=== PATIENT | male | born 1955 ===

== ENCOUNTER 2016-12-17 02:57 | Emergency (ER) | payer MEDICARE, MEDICAID ==
[~2016-12-17 02:57] MED LIST: ASPIRIN81 M1 PO; BIOFREEZE118 M1 TP; BISCOLAX10 MG PR; CEROVITE ADVAN1 EACH PO; COMBIVENT RESPIM4 G1 AERO NEB; COREG6.25 M1 PO; CULTURELLE1 EAC1 PO; CYMBALTA60 M1 PO; ELIQUIS2.5 M1 PO; ELIQUIS5 M1 PO; FEOSOL325 M1 PO; GLUCAGON HCL1 MG SC; HYDRALAZINE HCL25 M1 PO; IPRAT-ALBUT 0.5-3 ML AERO NEB; ISOSORBIDE MONO30 M4 PO; MIRALAX17 G2 PO; NEURONTIN600 M1 PO; NITROSTAT0.4 MG/TAB SL; NORVASC10 M2 PO; NOVOLIN 70100 UNITS/ SC; NYSTOP60 GM EXT; OMEPRAZOLE20 M4 PO; PERCOCET 5-3251 EACH PO; TYLENOL325 M2 PO; VITAMIN C500 M3 PO; WELLBUTRIN XL300 M3 PO; [UNRECOGNIZED DRUG - OTHER] PO
[2016-12-17] MEDS ORDERED: PRAVACHOL20 M1 PO (03:32)
[2016-12-17] MEDS ORDERED: AMITRIPTYLINE H25 M1 PO (03:34)
[2016-12-17] MEDS ORDERED: CERTAVITE SR-A1 EACH PO (03:36)
[2016-12-17] MEDS ORDERED: PERCOCET 5-3251 EACH PO (03:47)
[2016-12-17] MEDS ORDERED: ZOFRAN4 M2 PO (03:48)
[2016-12-17 04:12] LABS: BASO % 0.3 % (0-2); EOS % 2.2 % (0-7); EOSINOPHIL ABSOLUTE COUNT 0.2 tho/cmm (0.0-0.7); HCT-HEMATOCRIT 37.9 % (36.0-53.5); HGB-HEMOGLOBIN 12.3 gm/dl (13.5-17.0); IMMATURE GRANULOCYTES ABSOLUTE 0.01 tho/cmm (0-0.03); IMMATURE GRANULOCYTES PERCENT 0.1 % (0-0.3); LYMPH % 11.8 % (20-45); LYMPH ABSOLUTE COUNT 1.1 tho/cmm (0.8-4.5); MCH (MEAN CORPUSCULAR HGB) 29.9 pg (28.0-32.0); MCHC MEAN CORPUSCULAR HGB CONC 32.5 % (32.0-36.0); MCV (MEAN CELL VOLUME) 92.2 fl (82.0-96.0); MEAN PLATELET VOLUME 9.9 cmc (9.4-12.4); MONO % 8.6 % (0-12); MONOCYTE ABSOLUTE COUNT 0.8 tho/cmm (0.0-1.2); PLATELET COUNT 192 tho/cmm (150-450); RED BLOOD COUNT 4.11 mil/cmm (4.40-5.70); RED CELL DISTRIBUTION WIDTH 15.1 % (12.4-16.4); WHITE BLOOD COUNT 9.1 tho/cmm (4.0-10.0)
[2016-12-17 04:29] LABS: ALB/GLOB RATIO 0.8 (0.8-2.0); ALBUMIN 3.4 g/dl (3.5-5.0); ALKALINE PHOSPHATASE 103 U/L (33-138); ALT/SGPT 23 U/L (12-78); ANION GAP 12 mmol/L (0-20); AST/SGOT 20 U/L (10-40); BILIRUBIN,TOTAL 0.6 mg/dl (0.0-1.5); BLOOD UREA NITROGEN 32 mg/dl (6-24); CALCIUM 8.9 mg/dl (8.5-10.5); CARBON DIOXIDE-VENOUS 27 mmol/L (22-32); CHLORIDE 104 mmol/l (96-110); CREATININE 2.27 mg/dl (0.60-1.30); GLUCOSE 147 mg/dL (70-110); POTASSIUM 3.9 mmol/L (3.7-5.1); SODIUM 139 mmol/L (135-145); eGFR VALUE FOR BLACK 35 mL/Min
== END 2016-12-17 05:14 ==
LOC: EDMED 02:57
PROVIDERS: Emergency Medicine Emergency Medical Services
DX: R09.02 Hypoxemia (principal); I11.9 Hypertensive heart disease without heart failure; I48.91 Unspecified atrial fibrillation; E11.9 Type 2 diabetes mellitus without complications; J44.9 Chronic obstructive pulmonary disease, unspecified; Z95.1 Presence of aortocoronary bypass graft; E66.01 Morbid (severe) obesity due to excess calories; Z79.4 Long term (current) use of insulin; Z79.899 Other long term (current) drug therapy; F17.200 Nicotine dependence, unspecified, uncomplicated